=== PATIENT | female | born 1990 | race Caucasian/White ===

== ENCOUNTER 2017-06-03 07:40 | Emergency (ER) | payer SELFPAY ==
[~2017-06-03] VITALS: Ht 157.5 cm; Wt 70.0 kg
[2017-06-03 07:44] VITALS: Ht 157.5 cm; Wt 70.0 kg
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
[2017-06-03] MEDS ORDERED: HYDROmorphONE 2 MG/ML SYG IV ONE ×2 (08:00→08:30)
[2017-06-03] MEDS ORDERED: ONDANSETRON 4 MG INJ IV ONE ×2 (08:00→08:30)
--- NOTE | 2017-06-03 08:56 | RADRPT ---
PROCEDURE: XR right ankle. CLINICAL INDICATION: Trauma, pain. TECHNIQUE: AP, oblique and lateral views of the right ankle were performed. COMPARISON: None. FINDINGS: There is normal mineralization and alignment. No acute fracture or osseous lesion is identified. The joints are normal. Soft tissue swelling overlies the lateral malleolus. IMPRESSION: 1. No acute fracture or dislocation. 2. Lateral soft tissue swelling. RPTAT: HRS[facility] Physician Miguel Ángel Date Time Electronically viewed and signed by Yassine Turner Physician on 06/03/2017 08:56 RR/
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
[2017-06-03] MEDS ORDERED: HYDR-902 PO (09:22)
[2017-06-03] MEDS ORDERED: IBUP800T25 PO (09:22)
[2017-06-03 09:59] VITALS: BP 130/79; PULSE 80; RESP 20
== END 2017-06-03 10:00 | disposition home or self-care (01) ==
LOC: E/R 07:40
DX: S93.401A Sprain of unspecified ligament of right ankle, initial encounter (principal); V43.62XA Car passenger injured in collision with other type car in traffic accident, initial encounter
CPT/HCPCS: 29515; 71010; 73610; 96374; 96375; 96376; 99284; J1170; J2405